=== PATIENT | female | born 1960 | race Caucasian/White ===

== ENCOUNTER → 2016-10-03 | Outpatient (CLI) | payer OTHER ==
--- NOTE | 2016-10-03 12:39 | MAMMOGRAPHY REPORT ---
BILATERAL DIGITAL SCREENING MAMMOGRAM TOMOSYNTHESIS WITH CAD: 10/03/2016 CLINICAL HISTORY: Routine screening. Patient has no complaints. TECHNIQUE: Breast tomosynthesis in addition to standard 2D mammography was performed. Current study was also evaluated with a Computer Aided Detection (CAD) system. COMPARISON: Comparison is made to exams dated: 06/25/2014 mammogram, 04/10/2012 mammogram, 03/21/2011 mammogram - [facility], and 01/16/2008. BREAST COMPOSITION: The tissue of both breasts is almost entirely fatty. FINDINGS: No suspicious masses, calcifications, or areas of architectural distortion are noted in e ither breast. There has been no significant interval change compared to prior exams. IMPRESSION: ACR BI-RADS CATEGORY 1: NEGATIVE There is no mammographic evidence of malignancy. A 1 year screening mammogram is recommended. The p atient will receive written notification of the results. Approximately 10% of breast cancers are not detected with mammography. A negative mammographic repor t should not delay biopsy if a clinically suggestive mass is present. Ying England M.D. ah/:10/03/2016 10:24:59 Manager Of Human Resources: Cris Stevenson RT(R)(M), [facility] letter sent: Normal 1/2 BI-RADS Code: ACR BI-RADS Category 1: Negative
== END | disposition home or self-care (01) ==
LOC: C.MAMM 09:43
PROVIDERS: ATTEND Obstetrics & Gynecology
DX: Z12.31 Encounter for screening mammogram for malignant neoplasm of breast (principal)

== ENCOUNTER → 2016-11-22 | Outpatient (CLI) | payer OTHER | END | disposition home or self-care (01) | LOC: C.PAPS 09:22 | PROVIDERS: ATTEND Obstetrics & Gynecology | DX: Z01.419 Encounter for gynecological examination (general) (routine) without abnormal findings (principal) ==

== ENCOUNTER → 2017-09-17 | Outpatient (CLI) | payer OTHER ==
[~2017-09-17] MED LIST: OPTIRAY 320 IV PRN
--- NOTE | 2017-09-17 15:18 | DIAGNOSTIC IMAGING REPORT ---
CHEST COMBO ANGIOGRAPHY CLINICAL HISTORY: 56 years-old Female presenting with ^ABN ECHO,ASCENDING AORTA DILATION ^SCAN COMBO PER PAOfe(KF). TECHNIQUE: Multidetector CT angiography of the chest was performed before and after administration of intravenous contrast. 3-D volumetric and/or maximum intensity projection (MIP) images were subsequently reconstructed for review. IV contrast: 120 mL of Optiray 320. A dose lowering technique was used consistent with the principles of ALARA (as low as reasonably achievable). COMPARISON: None. CT DOSE (mGy.cm): The estimated cumulative dose is 613.11 mGy.cm. FINDINGS: Fire Loss Prevention Engineer topogram: Unremarkable. Vasculature: The study is adequate for assessment of the aorta. Precontrast imaging demonstrates no postsurgical change. No evidence of intramural hematoma. Four-vessel aortic arch. The ascending aorta measures 4.5 cm in diameter, mildly ectatic. Minimal atherosclerosis of aortic arch. Patent origins of the branch vessels. No evidence of dissection, significant intimal irregularity or acute injury. Allowing for the phase of contrast, no filling defect within the pulmonary arterial tree to suggest pulmonary. Main pulmonary artery is not enlarged. No flattening of the interventricular septum. No intracardiac intracardiac filling defect. No reflux of contrast into the hepatic veins. Remaining chest: On soft tissue windows, few subcentimeter nodules may be present in the left lobe of the thyroid. No axillary, supraclavicular, hilar, or mediastinal lymphadenopathy. Coronary artery calcification. Top normal heart size. No pericardial or pleural effusion. Biliary ductal dilatation is suggested. Postsurgical changes of Melanie-en-Y gastric bypass. On lung windows, dependent changes likely atelectasis. Trace emphysema at the apices. Mosaic attenuation at the lung bases could suggest small airways disease. Airways patent. On bone windows, degenerative changes of the spine. IMPRESSION: 1. Mild ectasia of the ascending aorta, which measures 4.5 cm in diameter. 2. No acute aortic injury or evidence of pulmonary embolus. 3. Trace emphysema. 4. Mosaic attenuation at the lung bases could suggest small airways disease. 5. Post surgical changes of Melanie-en-Y gastric bypass. 6. Biliary ductal dilatation is suggested. Electronically signed by: Chaitanya Silvestre M.D. 09/17/2017 3:17 PM Dictated Date/Time: 09/17/2017 3:09 PM
== END | disposition home or self-care (01) ==
LOC: C.CTS 14:33
PROVIDERS: ATTEND Internal Medicine Cardiovascular Disease
DX: I77.810 Thoracic aortic ectasia (principal); Z98.84 Bariatric surgery status

== ENCOUNTER → 2017-11-12 | Outpatient (CLI) | payer BC ==
--- NOTE | 2017-11-13 15:23 | MAMMOGRAPHY REPORT ---
BILATERAL DIGITAL SCREENING MAMMOGRAM TOMOSYNTHESIS WITH CAD: 11/12/2017 CLINICAL HISTORY: Routine screening. Patient has no complaints. TECHNIQUE: Breast tomosynthesis in addition to standard 2D mammography was performed. Current study was also evaluated with a Computer Aided Detection (CAD) system. COMPARISON: Comparison is made to exams dated: 10/03/2016 mammogram, 06/25/2014 mammogram, 03/21/2011 ma mmogram - [facility], 01/16/2008, 12/24/2006, and 11/21/2005 mammogram. BREAST COMPOSITION: The tissue of both breasts is almost entirely fatty. FINDINGS: The parenchymal pattern is unchanged. No developing mass, architectural distortion or clus ter of suspicious microcalcifications is seen in either breast. IMPRESSION: ACR BI-RADS CATEGORY 2: BENIGN There is no mammographic evidence of malignancy. A 1 year screening mammogram is recommended. The pa tient will receive written notification of the results. Approximately 10% of breast cancers are not detected with mammography. A negative mammographic report should not delay biopsy if a clinically suggestive mass is present. Radha Vasquez M.D. ay/:11/12/2017 15:01:04 Clinic Manager: Gloria YEH(Jayy)(Dov), [facility] letter sent: Normal 1/2 BI-RADS Code: ACR BI-RADS Category 2: Benign
== END | disposition home or self-care (01) ==
LOC: C.MAMM 07:53
PROVIDERS: ATTEND Obstetrics & Gynecology
DX: Z12.31 Encounter for screening mammogram for malignant neoplasm of breast (principal)

== ENCOUNTER → 2017-12-10 | Outpatient (CLI) | payer BC | END | disposition home or self-care (01) | LOC: C.PAPS 15:32 | PROVIDERS: ATTEND Obstetrics & Gynecology | DX: Z12.4 Encounter for screening for malignant neoplasm of cervix (principal) ==

== ENCOUNTER → 2017-12-20 | Outpatient (CLI) | payer BC ==
--- NOTE | 2017-12-20 20:16 | DIAGNOSTIC IMAGING REPORT ---
R VENOUS DOPP LOWER EXT UNILAT CLINICAL HISTORY: 57 years-old Female presenting with KNEE PAIN. TECHNIQUE: Real-time grayscale and color and spectral Doppler ultrasound imaging of the veins of the right lower extremity was performed. Compression and augmentation were also utilized. COMPARISON: None. FINDINGS: Right: Common femoral vein: Patent. Greater saphenous vein: Patent. Deep femoral vein: Patent. Femoral vein: Patent. Popliteal vein: Patent. Calf veins: Patent. The posterior tibial vein was not visualized. Other: 5.4 x 1.5 x 4.5 cm anechoic cystic lesion in the popliteal fossa, most likely popliteal cyst. IMPRESSION: 1. No evidence of deep venous thrombosis. 2. Prominent popliteal cyst. Electronically signed by: Chaitanya Silvestre M.D. 12/20/2017 8:15 PM Dictated Date/Time: 12/20/2017 8:14 PM
== END | disposition home or self-care (01) ==
LOC: C.ULTR 19:35
PROVIDERS: ATTEND Family Medicine
DX: M25.569 Pain in unspecified knee (principal); M71.21 Synovial cyst of popliteal space [Baker], right knee

== ENCOUNTER → 2017-12-26 | Outpatient (CLI) | payer BC | END | disposition home or self-care (01) | LOC: C.RDSM 15:27 | PROVIDERS: ATTEND Orthopaedic Surgery Sports Medicine | DX: M71.20 Synovial cyst of popliteal space [Baker], unspecified knee (principal) ==

== ENCOUNTER 2022-07-12 05:54 | Observation (INO) ==
--- NOTE | 2022-06-07 14:38 | PAT Medication Instructions ---
Medication Instructions Date of Service June 07, 2022 Home Medications celecoxib 100 mg capsule (Celebrex) 100 mg PO QAM ergocalciferol (vitamin D2) 1,250 mcg (50,000 unit) capsule (Vitamin D2) 1,250 mcg PO Q7D gabapentin 300 mg tablet,extended release 24 hr 300 mg PO HS levothyroxine 75 mcg tablet 75 mcg PO QAM metoprolol succinate 25 mg tablet,extended release 24 hr 12.5 mg PO HS tjzcppckdcss-Vu-nlyq-minerals 18 mg-0.4 mg tablet 1 tab PO QAM ropinirole 1 mg tablet 1 - 2 mg PO UD tramadol 50 mg tablet 50 mg PO Q4H PRN Continue as directed ropinirole 1 mg tablet 1 - 2 mg PO UD ASK your surgeon for instructions celecoxib 100 mg capsule (Celebrex) 100 mg PO QAM DO NOT take the morning of surgery ergocalciferol (vitamin D2) 1,250 mcg (50,000 unit) capsule (Vitamin D2) 1,250 mcg PO Q7D qlvahqidkdje-Gb-qvvv-minerals 18 mg-0.4 mg tablet 1 tab PO QAM Take morning of surgery With a small sip of water, OTHERWISE NOTHING TO EAT OR DRINK AFTER MIDNIGHT: levothyroxine 75 mcg tablet 75 mcg PO QAM tramadol 50 mg tablet 50 mg PO Q4H PRN(if needed) Take evening before surgery gabapentin 300 mg tablet,extended release 24 hr 300 mg PO HS metoprolol succinate 25 mg tablet,extended release 24 hr 12.5 mg PO HS tramadol 50 mg tablet 50 mg PO Q4H PRN(if needed) Other Notes If you have any questions please call us at [phone] or [phone] or [phone] or [phone]
--- NOTE | 2022-06-20 10:35 | Anesthesiology Consultation ---
Date of Service June 20, 2022 Assessment & Plan (1) Encounter for pre-operative examination: - Awaiting upcoming cardiology office visit note and echo (both scheduled 06/27; Dr. Iverson). - COVID screening: Per assessment on 06/07: No known COVID-19 positive contacts or current COVID-19 related symptoms. Travel screen negative. Patient vaccinated. At surgeon discretion if preop Covid testing being done. - Outpatient joint assessment: Pt currently scheduled for inpatient pathway. If surgeon requests review for outpatient joint pathway, patient is not recommended candidate for outpatient joint program from anesthesia standpoint. Chart Review Chart Review: Patient seen in Pre Admission Testing Teaching & Discussion Pre-Anesthesia Teaching/Discussion Notes: Instructed NPO after midnight before surgery,except medications with 15 cc of water. Medication instructions provided according to the PAT guidelines. History Surgery Operation Date: 07/12/22 07:00 Proposed Procedures p Right Total Hip Arthroplasty - Chaitanya Walls MD Height/Weight Height: 5 ft 6 in Weight: 78.6 kg Allergies Allergy/AdvReac Type Severity Reaction Status Date / Time No Known Drug Allergies Allergy Verified 06/07/22 10:09 Medications Home Medications Medication Instructions Recorded Confirmed Last Taken celecoxib 100 mg capsule (Celebrex) 100 mg PO QAM 06/07/22 06/07/22 Unknown ergocalciferol (vitamin D2) 1,250 1,250 mcg PO Q7D 06/07/22 06/07/22 Unknown mcg (50,000 unit) capsule (Vitamin D2) gabapentin 300 mg tablet,extended 300 mg PO HS 06/07/22 06/07/22 Unknown release 24 hr levothyroxine 75 mcg tablet 75 mcg PO QAM 06/07/22 06/07/22 Unknown metoprolol succinate 25 mg 12.5 mg PO HS 06/07/22 06/07/22 Unknown tablet,extended release 24 hr cjanjtdaqely-Hz-omlf-minerals 18 1 tab PO QAM 06/07/22 06/07/22 Unknown mg-0.4 mg tablet ropinirole 1 mg tablet 1 - 2 mg PO UD 06/07/22 06/07/22 Unknown tramadol 50 mg tablet 50 mg PO Q4H PRN Pain 06/07/22 06/07/22 Unknown Past Medical History Medical History CAD (coronary artery disease) Mild nonobstructive CAD per 2020 cardiac cath History of COVID-19 Dx 08/2020, symptoms at time: headache, loss taste smell for 2 months > resolved Hx of aortic aneurysm Under surveillance by cardio (to be updated prior to surgery per PAT RN interview) Dilated ascending aorta (4.4cm) per 12/05/20 echo Hx of osteoarthritis Hypertension Hypothyroidism Sleep apnea Doesn't use CPAP Exercise / Class Metabolic Activity II 4-5 Yardwork/Stairs/Walk up hill Past Surgical History Surgical History History of cardiac cath 2020 > no stents History of esophagogastroduodenoscopy (EGD) Hx of appendectomy Hx of section x2 Hx of cholecystectomy Hx of colonoscopy Hx of gastric bypass ~17 years ago initial surgery Revision w/hernia repair (2020) Past Anesthesia History No Hx of Anesthesia Complications and No Family Hx of Anesthesia Complications History of PONV No Hx of PONV and No Hx of Motion Sickness Social History Smoking Status: Former smoker Do You Dip or Chew Tobacco: No Smoking End Date: Quit 33 years ago Hx Alcohol Use: Yes (Very rare) Hx Substance Use: No substance use type: does not use Review of Systems Patient denies chest pain, shortness of breath, dyspnea on exertion, fever, chills, cough, wheezing, palpitations. Physical Exam Vital Signs VITALS BP 143/83 P 52 TEMP 98.0 SP02 96%RA RESP 16 PHYSICAL Full cervical extension range of motion. Full TMJ range of motion. TMD 3 finger breaths Mallampati Score 2 Dentition: full dentures, approximately 8 remaining front teeth per pt Lungs: clear throughout to auscultation Cardiac: regular rate and rhythm, no murmurs noted Spine: normal Carotid arteries: negative bruit Extremities: no edema Lab Results Anesthesia Preop Results Results Anesthesia Widget: WBC 4.58 K/ul (4.8-10.8) L 06/20/22 Hgb 13.5 g/dl (12.0-16.0) 06/20/22 Hct 40.4 % (34.1-44.9) 06/20/22 Plt 176 K/uL (130-400) 06/20/22 Na 139 mmol/L (136-145) 06/20/22 K 4.2 mmol/L (3.5-5.1) 06/20/22 Cl 105 mmol/L (98-107) 06/20/22 CO2 30 mmol/L (21-32) 06/20/22 BUN 13 mg/dl (6-23) 06/20/22 Creat 0.73 mg/dl (0.6-1.2) 06/20/22 Glucose Level 88 mg/dl (70-99(Fasting)) 06/20/22 PT 10.8 Seconds (9.0-12.0) 06/20/22 PTT 28.8 Seconds (21.0-31.0) 06/20/22 INR 1.0 (0.9-1.1) 06/20/22 HA1c Pending 06/22/22 Urine Color Yellow 06/20/22 Urine Appearance Clear (Clear) 06/20/22 Urine pH 6.5 (4.5-7.5) 06/20/22 Urine Specific [place] 1.004 (1.000-1.030) 06/20/22 Urine Protein Negative (Negative) 06/20/22 Urine Glucose (UA) Negative (Negative) 06/20/22 Urine Ketones Negative (Negative) 06/20/22 Urine Blood Negative (Negative) 06/20/22 Urine Nitrite Negative (Negative) 06/20/22 Urine Bilirubin Negative (Negative) 06/20/22 Urine Urobilinogen Negative (Negative) 06/20/22 Urine Leukocyte Esterase Negative (Negative) 06/20/22 Blood Type O Positive 06/20/22 Antibody Screen NEGATIVE 06/20/22 Testing Electrocardiogram Date: 06/20/22 SB at 55bpm. Cannot r/o anterior infarct, age undetermined. Echo scheduled 06/27/22* Chest X-Ray Date: 06/20/22 FINDINGS: PA and lateral chest radiographs are compared to study dated 03/28/2022. The heart is enlarged. The pulmonary vasculature is noncongested. The lungs and pleural spaces are clear. There is no pneumothorax. The bony thorax appears intact. IMPRESSION: Cardiomegaly with no active disease in the chest. Stress Test Date: 01/17/21 Type: exercise Positive stress echocardiogram for ischemia 96% MPHR. Negative stress ECG for ischemia 96% MPHR. Average exercise tolerance for age and gender. 6.1 METS. Severe hypokinesis of the mid to distal anterior, apex and apical inferior lopez. Basal and mid inferior wall hypokinesis. Mild concentric LVH. EF 60%. Cardiac Catheterization Date: 02/03/21 Mild nonobstructive CAD. Mild dilation of the ascending aorta. Mildly elevated LVEDP at 19 mmHg. COVID-19 Risk Screen Screening Information COVID-19 Screen Date: 06/20/22 Exposure 21 Days Family/Household +COVID Last 21 Days: No Exposure 10 Days Any COVID Exposure Last 10 Days: No Symptoms Last 10 Days Experienced COVID Sx Last 10 Days: No + COVID 0-90 Days COVID + in Last 0-90 Days: No
[2022-07-12] MEDS ORDERED: traMADol HCL 50 MG TABLET PO SCH (06:00)
[2022-07-12] MEDS ORDERED: dexAMETHasone 4 MG TAB PO SCH (06:00)
[2022-07-12] MEDS ORDERED: TRANEXAMIC ACID 1,000 MG **IV Intra-op IV SCH (06:00)
[2022-07-12] MEDS ORDERED: TRANEXAMIC ACID 1,000 MG **IV Pre-op IV SCH (06:00)
[2022-07-12] MEDS ORDERED: LR 500ML BOLUS, THEN 15ML/HR IV SCH (06:00)
[2022-07-12] MEDS ORDERED: ROPIVACAINE 0.5% HCL/PF 150 MG, BUPIVACAINE 0.75% MPF 20 ML, EPINEPHrine 0.15 MG, Ketor... INFIL SCH (06:00)
[2022-07-12] MEDS ORDERED: ceFAZolin 2000MG 2,000 MG/15 ML SYR IV SCH (06:00)
[2022-07-12] MEDS ORDERED: CeleBREX 200 MG CAP PO SCH ×2 (06:00→21:00)
[2022-07-12] MEDS ORDERED: ACETAMINOPHEN 500 MG TAB PO SCH (06:00)
[2022-07-12] MEDS ORDERED: FAMOTIDINE 20 MG TAB PO SCH (06:00)
[2022-07-12] MEDS ORDERED: Scopolamine 1 MG TDSY TD SCH (06:00)
[2022-07-12] MEDS ORDERED: LR 60ML/HR IV SCH (06:00)
[2022-07-12] MEDS ORDERED: BUPIVACAINE 0.5 % 5 MG/1 ML PF 10ML VIAL ONE (06:37)
[2022-07-12] MEDS ORDERED: MIDAZOLAM HCL 1 MG/ML 2ML VIAL ONE ×2 (07:25→08:56)
--- NOTE | 2022-07-12 08:08 | History & Physical Bridge Note ---
Date of Service July 12, 2022 History & Physical Bridge Note I have examined the patient, reviewed the History & Physical and in the interval since the performance of the History & Physical I have noted the following changes of clinical significance: no changes noted
[2022-07-12] MEDS ORDERED: ORTHO JOINT ANESTHETIC ONE (08:17)
[2022-07-12] MEDS ORDERED: ePHEDrine sulfate 50 MG/ML AMP IV PRN (08:40)
[2022-07-12] MEDS ORDERED: HYDROmorphone INJ 2 MG/ML SYR/VIAL IV PRN (08:40)
[2022-07-12] MEDS ORDERED: fentaNYL citrate 100 MCG/2 ML VIAL IV PRN (08:40)
[2022-07-12] MEDS ORDERED: PROMETHAZINE HCL 12.5 MG in SODIUM CHLORIDE 0.9% 50 ML IV PRN (08:40)
[2022-07-12] MEDS ORDERED: ONDANSETRON INJ 2 MG/ML 2 ML VIAL IV PRN ×2 (08:40→10:08)
[2022-07-12] MEDS ORDERED: ATROPINE SULFATE 0.1 MG/ML 10ML SYR IV PRN (08:40)
[2022-07-12] MEDS ORDERED: PROPOFOL IV EMULSION 10 MG/ML 20 ML VIAL IV ONE ×2 (08:52→10:24)
[2022-07-12] MEDS ORDERED: ePHEDrine sulfate 50 MG/ML AMP ONE (09:25)
[2022-07-12] MEDS ORDERED: bisacodyL 10 MG SUPP PR PRN (10:08)
[2022-07-12] MEDS ORDERED: ALUMINUM/MAGNESIUM SUSP 30 ML UDC PO PRN (10:08)
[2022-07-12] MEDS ORDERED: METOCLOPRAMIDE HCL INJ 5 MG/ML 2 ML VIAL IV PRN (10:08)
[2022-07-12] MEDS ORDERED: HYDROCODONE/ACETAMOPHEN 5/325MG TAB PO PRN (10:08)
[2022-07-12] MEDS ORDERED: MAGNESIUM HYDROXIDE SUSP 30 ML UDC PO PRN (10:08)
[2022-07-12] MEDS ORDERED: NALOXONE HCL 0.4 MG/1 ML VIAL/CARP IV PRN (10:08)
[2022-07-12] MEDS ORDERED: diphenhydrAMINE 50 MG/ML VIAL IV PRN (10:08)
[2022-07-12] MEDS ORDERED: traMADol HCL 50 MG TABLET PO PRN (10:13)
[2022-07-12] MEDS ORDERED: rOPINIRole HCL 1 MG TABLET PO SCH (10:15)
--- NOTE | 2022-07-12 10:16 | Operative Report ---
Post Operative Report Pre & Post Diagnosis Operation Date: 07/12/22 08:30 Pre-Op Diagnosis: Right Hip Osteoarthritis Post-Op Diagnosis: Right Hip Osteoarthritis I identified the patient and participated in the time-out.: Yes Procedure Operation Date: 07/12/22 08:30 Actual Procedures p Right Total Hip Arthroplasty(Right) - Chaitanya Walls MD Surgeon Chaitanya Walls MD It Support Specialist Aris Payton DO and Jemal Marr PA-C Estimated Blood Loss 200 Findings Consistent with Post-Op Diagnosis Fluids 1200 Specimens Right femoral head Anesthesia Type Spinal MAC Complications none Disposition Disposition: Recovery Room Indications 61-year-old female, with right hip osteoarthritis refractory to conservative management. X-rays demonstrate [id number]-kl-dyak disease. I had a long discussion with her about the risks and benefits of surgery, alternatives, and expected outcomes. After reviewing all these she elected proceed with surgery. All questions were answered. Informed consent was signed. Description of Procedure Patient was identified in the preoperative holding area and the surgical site, right hip, was marked. A spinal anesthetic was placed, then the patient was brought back to the main operating room, placed in the operating table and moved into the lateral decubitus position. Axillary roll was placed. All bony prominences were padded. Perioperative antibiotics and tranexamic acid 1 gram IV were administered. Operative extremity was prepped and draped in the normal sterile fashion. Prior to incision a multidisciplinary timeout was called. All in the room were in agreement. We began by making an incision for a posterior approach to the hip. We dissected down through subcutaneous tissues to the level of the fascia. The fascia was incised in line with the incision. Charnley bow was placed. The trochanteric bursa was excised. The piriformis and short external rotators were dissected off the posterior aspect of the hip. A box cut was made in the capsule. The femoral head was dislocated. The femoral neck cut was made at our preoperative template. The acetabulum was then exposed. The labrum was sharply excised. Contents of the cotyloid fossa were removed with electrocautery. We then began reaming at a size 8 mm less than our preoperative template. We reamed up by [address] the way up to a size 54 mm cup. This gave us good bleeding cancellus bone circumferentially. The acetabulum was then irrigated out and dried. The real Florence Gription cup was then impacted down into position with 45 degrees of lateral opening and 25 degrees of anteversion. A single cancellous bone screw was placed up into the ilium. Excellent fixation was obtained. A trial liner for a 36 mm femoral head was then placed. Next we turned our attention to the femur. The lateral neck was removed with a box osteotome. Intramedullary guide was used followed by the lateralizing reamer. We then reamed up to a size 5 Butner stem. We then broached all the way up to a size 4. We began trialing with a standard offset neck and a +5 head. Hip was reduced. Leg lengths were symmetric. The hip was stable in extension and external rotation, and stable in the sleeper position. At 90 degrees of hip flexion the hip could be internally rotated 65 degrees before le vering out of the cup. I was very happy with the stability exam. Therefore the hip was dislocated and the femoral trial was removed. The acetabulum was re- exposed, and the trial liner was removed. An Altrx polyethylene liner for a 36 mm femoral head was then impacted into the shell. The locking mechanism was checked to ensure that it had engaged which it had. The femur was re-exposed. The femoral canal was irrigated and dried. The real size 4 standard offset Butner femoral stem was opened up. This was impacted down into position. It sat at the same level as the femoral trial. Therefore the 36 mm ceramic femoral head with a +5 mm offset was opened up and gently impacted down onto the trunnion. The hip was atraumatically reduced. Another 1 gram of IV tranexamic acid was started prior to closure. The wound was irrigated out with sterile Betadine solution. The periarticular injection cocktail was then placed. The short external rotators, piriformis, and posterior capsule were repaired through drill holes in the greater trochanter using #2 Vicryl. The fascia was run with a looped #1 PDS. The subcutaneous layer was closed with #1 PDS. The dermal layer was closed with 2-0 Vicryl. Zip line was used for the skin followed by a Silverlon dressing. A compressive dressing was then placed. The patient was then rolled supine. Leg lengths were rechecked and were symmetric. An abduction pillow was placed. Sedation was lifted and the patient was transferred to recovery room in stable condition. Summary of implants: [employer] Florence Gription Acetabular Shell Sector Cup, 54 mm outer diameter Florence Cancellous bone screw, 6.5 x 40 mm Florence Altrx Polyethylene Acetabular Liner, Neutral, with a 36 mm inner diameter DePuy Butner Femoral stem with Porocoat, 12/14 taper, size 4 standard offset 36 mm ceramic femoral head with +5 offset Postoperative course: Patient will be admitted to the hospital from the recovery room. Patient will be weightbearing as tolerated with posterior hip precautions. Aspirin for DVT prophylaxis I attest to the content of the Intraoperative Record and any orders documented therein. Any exceptions are noted below.
--- NOTE | 2022-07-12 10:28 | Operative Report ---
Post Operative Report Pre & Post Diagnosis Operation Date: 07/12/22 08:30 Pre-Op Diagnosis: Right Hip Osteoarthritis Post-Op Diagnosis: Right Hip Osteoarthritis I identified the patient and participated in the time-out.: Yes Procedure Operation Date: 07/12/22 08:30 Actual Procedures p Right Total Hip Arthroplasty(Right) - Chaitanya Walls MD Surgeon Chaitanya Walls MD Sliver Lap Machine Tender Aris Payton DO and Jemal Marr PA-C Estimated Blood Loss 200 Findings Consistent with Post-Op Diagnosis Specimens None Complications none Disposition Accompanied Patient To Recovery: Yes Disposition: Recovery Room Description of Procedure Patient was taken to the operating room where anesthesia was administered. Patient was prepped and draped in the usual sterile fashion. Please see attending's operative report for specifics of the procedure. I was present for the entire case from initial patient positioning through final wound closure. Assistance was provided in tissue retraction, hemostasis, and final wound closure. Patient was taken to the recovery room in satisfactory condition. I attest to the content of the Intraoperative Record and any orders documented therein. Any exceptions are noted below.
--- NOTE | 2022-07-12 10:32 | Operative Report ---
Post Operative Report Pre & Post Diagnosis Operation Date: 07/12/22 08:30 Pre-Op Diagnosis: Right Hip Osteoarthritis Post-Op Diagnosis: Right Hip Osteoarthritis I identified the patient and participated in the time-out.: Yes Procedure Operation Date: 07/12/22 08:30 Actual Procedures p Right Total Hip Arthroplasty(Right) - Chaitanya Walls MD Surgeon FINN Omer MD Hearing Therapy Teacher Aris Payton DO and Jemal Marr PA-C Estimated Blood Loss 200 Findings Consistent with Post-Op Diagnosis see operative report Specimens see operative report Drains none Complications none Disposition Accompanied Patient To Recovery: Yes Indications This 61-year-old female presented to the office with complaints of persisting right hip pain. She had tried conservative care measures without improvement. She elected to proceed with surgical intervention after being educated about potential risks and outcomes. Preoperative imaging was obtained. Description of Procedure Patient was administered a spinal anesthetic and then taken to the operating room where she was given sedation. She was prepped and draped in the usual sterile fashion. Please see Dr. Walls's operative report for specifics of the procedure. I was present for the entire case from initial patient positioning through final wound closure. Assistance was provided in tissue retraction, hemostasis, trial implant placement, final implant placement, and final wound closure. Patient was taken to the recovery room in satisfactory condition. I attest to the content of the Intraoperative Record and any orders documented therein. Any exceptions are noted below.
--- NOTE | 2022-07-12 11:35 | Anesthesiology Progress Note ---
Date of Service July 12, 2022 Anesthesia Post Procedure Vital Signs Vital Signs: Temp Pulse Pulse Resp BP Pulse Ox O2 Del Method 07/12/22 11:27 36.3 C L 62 16 118/75 97 Room Air 07/12/22 11:15 58 L 13 121/67 96 Room Air 07/12/22 11:05 36.3 C L 61 12 126/64 97 Room Air 07/12/22 10:55 79 20 118/82 96 Room Air 07/12/22 10:45 80 17 119/80 94 Room Air 07/12/22 10:35 64 13 105/69 98 Oxymask 07/12/22 10:28 36.0 C L 87 15 108/71 95 Oxymask 07/12/22 06:13 36.7 C 69 20 148/89 H 96 Room Air 07/12/22 06:13 Room Air O2 Flow Rate 07/12/22 11:27 07/12/22 11:15 07/12/22 11:05 07/12/22 10:55 07/12/22 10:45 07/12/22 10:35 4 07/12/22 10:28 6 07/12/22 06:13 07/12/22 06:13 Pain Intensity Right Hip: Pain Intensity: 0 Transfer of Care Handoff Completed per policy Notes Mental Status: alert / awake / arousable and participated in evaluation Nausea / Vomiting: adequately controlled Pain: adequately controlled Airway Patency, RR, SpO2: stable & adequate BP & HR: stable & adequate Hydration State: stable & adequate Neuraxial Anesthesia: was administered and sensory block is resolving Anesthetic Complications: no major complications apparent and Pt Satisfied with anesthetic care
[2022-07-12] MEDS: KETOROLAC TROMETHAMINE 15 MG/ML VIAL IV SCH ×3 (12:40→23:36)
[2022-07-12] MEDS: SODIUM CHLORIDE 0.9% 1000ML 1,000 ML IV SCH ×2 (12:40→23:03)
[2022-07-12] MEDS: ACETAMINOPHEN 500 MG TAB PO SCH ×2 (13:55→22:09)
[2022-07-12] MEDS ORDERED: TRANEXAMIC ACID / 0.7% NACL 1,000 MG/100 ML BAG IV SCH (16:00)
[2022-07-12] MEDS: Scopolamine CHECK PATCH PLACEMENT SCH ×2 (16:15→23:44)
[2022-07-12] MEDS: ceFAZolin 2000MG 2,000 MG/15 ML SYR IV SCH ×2 (16:15→23:37)
--- NOTE | 2022-07-12 17:10 | XRay Report ---
XR pelvis 1-2V routine CLINICAL HISTORY: Postoperative evaluation. COMPARISON: Pelvis radiograph June 20, 2022. FINDINGS: Pelvic surgical clips are present. Alignment of the total right hip arthroplasty is anatom ic. There is no periprosthetic fracture or unexpected radiopaque foreign body. There is an acetabular screw. IMPRESSION: Expected findings following total right hip arthroplasty. ACT 112: Negative or not required by law. Electronically signed by: Erwin Alexis M.D. 07/12/2022 5:09 PM
[2022-07-12] MEDS: DOCUSATE SODIUM 100 MG CAP PO SCH (20:23)
[2022-07-12] MEDS ORDERED: METOPROLOL SUCC 25MG EXT REL TAB PO SCH (21:00)
[2022-07-12] MEDS ORDERED: SENNA 8.6 MG TAB PO SCH (21:00)
[2022-07-12] MEDS ORDERED: GABAPENTIN 300 MG CAP PO SCH (21:00)
[2022-07-12] MEDS ORDERED: rOPINIRole HCL 2 MG TABLET PO SCH (23:30)
[2022-07-13] MEDS: ACETAMINOPHEN 500 MG TAB PO SCH (05:47)
[2022-07-13] MEDS: KETOROLAC TROMETHAMINE 15 MG/ML VIAL IV SCH (05:48)
[2022-07-13 06:11] LABS: Basophils # (auto) 0.01 K/uL (0-0.2); Basophils % (auto) 0.1 %; Eosinophils # (auto) 0.03 K/uL (0-0.50); Eosinophils % (auto) 0.4 %; Hemoglobin 10.6 g/dl (12.0-16.0); Immature Granulocytes # (auto) 0.02 K/uL (0.00-0.02); Immature Granulocytes % (auto) 0.3 %; Lymphocytes % (auto) 12.8 %; Mean Corpuscular Hgb Conc 33.1 g/dL (32.0-36.0); Mean Corpuscular Volume 90.7 fL (80.0-100.0); Mean Platelet Volume 10.2 fL (9.4-12.3); Monocytes # (auto) 0.52 K/uL (0.24-0.82); Monocytes % (auto) 6.6 %; Neutrophils # (auto) 6.26 K/uL (1.4-6.5); Neutrophils % (auto) 79.8 %; Platelet Count 157 K/uL (130-400); RDW Coefficient of Variation 13.9 % (11.5-14.5); RDW Standard Deviation 45.9 fL (36.4-46.3); Red Blood Count 3.53 M/uL (3.93-5.22); White Blood Count 7.84 K/ul (4.8-10.8)
[2022-07-13] MEDS ORDERED: LEVOTHYROXINE SODIUM 75 MCG TABLET PO SCH (06:30)
[2022-07-13 06:42] LABS: BUN Creatinine Ratio 29.4 (10-20); Calcium 8.1 mg/dl (8.5-10.1); Creatinine Clr Calc Pharmacy 89.8 ml/min; Est GFR (African American) 107.9 ml/min; Est GFR (Non-African American) 93.1 ml/min; Potassium 3.9 mmol/L (3.5-5.1)
[2022-07-13] MEDS ORDERED: dexAMETHasone 4 MG TAB PO SCH (08:00)
[2022-07-13] MEDS: DOCUSATE SODIUM 100 MG CAP PO SCH (08:50)
[2022-07-13] MEDS: Scopolamine CHECK PATCH PLACEMENT SCH (08:50)
[2022-07-13] MEDS ORDERED: MULTIVITAMIN TAB PO SCH (09:00)
[2022-07-13] MEDS ORDERED: MULTIVITAMIN CA IRON MINERALS PO SCH (09:00)
[2022-07-13] MEDS ORDERED: CELECOXIB 100 MG CAP PO SCH (09:00)
--- NOTE | 2022-07-13 10:05 | Orthopedic Progress Note ---
Date of Service July 13, 2022 Assessment & Plan (1) S/P total hip arthroplasty: Plan: PT/OT WBAT with walker Total hip precautions reviewed Keep Silverlon in place Pain control with PO meds DVT prophy with Teds and Aspirin Ice with EZ wrap Plan is to discharge home today with in home PT for first 2 weeks postoperatively Follow up at [facility] as previous scheduled With questions contact our clinic at [phone] Admission and Anticipated Discharge Date Admission Date: July 12, 2022 Subjective This 61 yo F is seen this AM day 1 s/p Right Total hip arthroplasty. She is doing very and has completed her AM OT eval. She states that her pain is well controlled with the PO Hydrocodone. She is planning on going home later today with in home PT set up for the first 2 weeks post operatively. She denies CP, SOB, fever, chills, sweat, lethargy, or numbness/tingling in her Rt LE. She also denies nausea, vomiting, difficulty voiding or moving her bowels. Review of Systems Review of Systems: All systems reviewed & are unremarkable except as noted in Subjective Physical Exam Physical Exam: Right Hip: Outer dressing removed. Silverlon is clean dry and intact. Patient is able to perform active SLRT and is easily able to dorsi/plantar flex her foot. Quad strength is 4/5. She experiences very slight pain with light passive hip flexion, internal and external rotation. She is NV intact in the Rt LE Results & Data ([facility]) Vital Signs (Past 12 Hours) Vital Signs Temp Pulse Resp BP Pulse Ox O2 Del Method 07/13/22 06:58 36.8 C 62 16 113/68 97 Room Air 07/13/22 02:37 36.7 C 59 L 16 126/73 96 Room Air 07/12/22 22:48 37 C 64 16 114/69 94 Room Air Diagnostic Findings Laboratory Results WBC 7.84 K/ul (4.8-10.8) 07/13/22 05:37 RBC 3.53 M/uL (3.93-5.22) L 07/13/22 05:37 Hgb 10.6 g/dl (12.0-16.0) L 07/13/22 05:37 Hct 32.0 % (34.1-44.9) L 07/13/22 05:37 MCV 90.7 fL (80.0-100.0) 07/13/22 05:37 MCH 30.0 pg (25.0-34.0) 07/13/22 05:37 MCHC 33.1 g/dL (32.0-36.0) 07/13/22 05:37 RDW Std Deviation 45.9 fL (36.4-46.3) 07/13/22 05:37 RDW Coeff of Loren 13.9 % (11.5-14.5) 07/13/22 05:37 Plt Count 157 K/uL (130-400) 07/13/22 05:37 MPV 10.2 fL (9.4-12.3) 07/13/22 05:37 Immature Gran % (Auto) 0.3 % 07/13/22 05:37 Neut % (Auto) 79.8 % 07/13/22 05:37 Lymph % (Auto) 12.8 % 07/13/22 05:37 Cascade % (Auto) 6.6 % 07/13/22 05:37 Eos % (Auto) 0.4 % 07/13/22 05:37 Baso % (Auto) 0.1 % 07/13/22 05:37 Neut # (Auto) 6.26 K/uL (1.4-6.5) 07/13/22 05:37 Lymph # (Auto) 1.00 K/uL (1.2-3.4) L 07/13/22 05:37 Cascade # (Auto) 0.52 K/uL (0.24-0.82) 07/13/22 05:37 Eos # (Auto) 0.03 K/uL (0-0.50) 07/13/22 05:37 Baso # (Auto) 0.01 K/uL (0-0.2) 07/13/22 05:37 Immature Gran # (Auto) 0.02 K/uL (0.00-0.02) 07/13/22 05:37 Sodium 139 mmol/L (136-145) 07/13/22 05:37 Potassium 3.9 mmol/L (3.5-5.1) 07/13/22 05:37 Chloride 111 mmol/L (98-107) H 07/13/22 05:37 Carbon Dioxide 26 mmol/L (21-32) 07/13/22 05:37 Anion Gap 2 (3-11) L 07/13/22 05:37 BUN 20 mg/dl (6-23) 07/13/22 05:37 Creatinine 0.68 mg/dl (0.6-1.2) 07/13/22 05:37 Est Cr Clr Drug Dosing 89.8 ml/min 07/13/22 05:37 Est GFR ( Amer) 107.9 ml/min 07/13/22 05:37 Est GFR (Non-Af Amer) 93.1 ml/min 07/13/22 05:37 BUN/Creatinine Ratio 29.4 (10-20) H 07/13/22 05:37 Glucose 113 mg/dl (70-99(Fasting)) H 07/13/22 05:37 Calcium 8.1 mg/dl (8.5-10.1) L 07/13/22 05:37 SARS-CoV-2, RNA, NAAT NEGATIVE (NEGATIVE) 07/12/22 Unknown Impressions Pelvis X-Ray 07/12/22 10:08 XR pelvis 1-2V routine CLINICAL HISTORY: Postoperative evaluation. COMPARISON: Pelvis radiograph June 20, 2022. FINDINGS: Pelvic surgical clips are present. Alignment of the total right hip arthroplasty is anatomic. There is no periprosthetic fracture or unexpected radiopaque foreign body. There is an acetabular screw. IMPRESSION: Expected findings following total right hip arthroplasty. ACT 112: Negative or not required by law. Electronically signed by: Erwin Alexis M.D. 07/12/2022 5:09 PM
[2022-07-13] MEDS ORDERED: ASPIRIN 81 MG ECTAB PO SCH (10:15)
--- NOTE | 2022-07-13 10:17 | Discharge Summary ---
Date of Service July 13, 2022 Admission HPI Per Admitting Provider History of Present Illness Patient is a 61-year-old female who is a new patient to Dr. Walls. She is here today for history and physical for upcoming right total hip arthroplasty on 07/12/[address] Walls. She explains she has had right hip pain that has been ongoing for over a year. She denies any fall or injury that provoke pain. She states the pain is in the groin and progresses with weightbearing activities. She states the pain is 7/10 currently and increases with weightbearing activity she states she has pain with ambulating especially on uneven surfaces. She denies any use of an assistive device. She states she has pain with going up and down the stairs and takes increased time to do this. She complains of stiffness after sitting for period of time. She has difficulty getting comfortable at night and sleeping due to groin pain. She states she has a hard time getting comfortable and often has to use a pillow under her legs. She denies any knee pain. She denies any paresthesia in the leg. She does complain of some weakness that has been ongoing in the right lower extremity. She states the pain has limited her ability for functional activities and she has modified her activities without improvement with her symptoms. She has tried exercising previously which did not seem to relieve her pain. She has tried a therapeutic corticosteroid under ultrasound guidance that did give her relief however this was only for 1 week. Her imaging shows advanced osteoarthritis of the right hip joint with [id number] with subchondral sclerosis and osteophytes. Due to progression of symptoms after a lengthy course of failed conservative treatment patient will be taken to the OR for a right total hip arthroplasty with Dr. Walls. Patient has a history of an aortic aneurysm she does follow cardiology and has an echo on 06/27/2022 followed by an appointment with cardiology for cardiac clearance. She has received medical clearance. She denies any history of heart attack, pulmonary disease, has a history of smoking, denies any history of DVT or pulmonary embolism. Denies any history of cancer. Admission Exam Per Admitting Provider Physical Exam Vitals & Measurements T: 36.4 C RR: 18 BP: 122/78 SpO2: 98% HT: 169.4 cm WT: 80.0 kg BMI: 27.88 General: Pt is alert and oriented x3. Wearing a mask. No acute distress. Well-dressed, well-nourished . HEENT: Head: Atraumatic, normocephalic. Eyes: Extraocular movements intact. Pupils equal, round, and reactive to light. Sclerae are normal. Ears: Hearing is grossly normal. Nose: Nares are patent bilaterally. Throat: Oropharynx clear. Mucous membranes moist. Upper dentures, with missing teeth no bottom. Uvula midline. Neg for erythema Neck: Supple. No lymphadenopathy. Nontender to palpation. Full range of motion. Lungs: Clear to auscultation bilaterally. No adventitious sounds. No acces som muscle use. Heart: Regular rate and rhythm. Normal S1, S2. No murmurs, rubs, or gallops appreciated. Abdomen: Soft, nontender, nondistended. Normal bowel sounds heard in all 4 quadrants. Musculoskeletal: Palpable tenderness of her right groin. Hip range of motion patient expressed pain with internal and external rotation as well as flexion and AB duction. Limited with internal rotation when compared to left lower extremity. Able to tolerate approximately hip flexion to about 75 degrees before she has extreme pain in approximately 40 degrees of abduction on the right. Positive Rocker and Mir sign on right. Leg length is equal strength is 4/5 on right lower extremity and 5/5 on left. Patient is able to actively dorsiflex and plantarflex ankle. Bilateral upper extremity range of motion is grossly within normal limits gait is antalgic without assistive device at this time bilateral lower extremity are neurovascularly intact.. Integumentary:normal in color neg for abrasion or rash Neuro: Cranial nerves II-XII grossly intact Psychiatric: Good eye contact, normal mood and affect, cooperative during exam, nonsuicidal Principal Diagnosis Right Hip Osteoarthritis Discharge Exam Right Hip: Outer dressing removed. Silverlon is clean dry and intact. Patient is able to perform active SLRT and is easily able to dorsi/plantar flex her foot. Quad strength is 4/5. She experiences very slight pain with light passive hip flexion, internal and external rotation. She is NV intact in the Rt LE Discharge Data Allergies Allergy/AdvReac Type Severity Reaction Status Date / Time No Known Drug Allergies Allergy Verified 07/12/22 06:11 Procedures Performed Operation Date: 07/12/22 08:30 Actual Procedures p Right Total Hip Arthroplasty(Right) - Chaitanya Walls MD Hospital Course (1) S/P total hip arthroplasty: Patient had an uneventful overnight stay follow Right [id number]. She did very well with PT/OT. She is anxious to be discharged home later today. She is already set up to in home PT for the first 2 weeks post operatively. PT/OT WBAT with walker Total hip precautions reviewed Keep Silverlon in place Pain control with PO meds DVT prophy with Teds and Aspirin Ice with EZ wrap Plan is to discharge home today with in home PT for first 2 weeks postoperatively Follow up at [facility] as previous scheduled With questions contact our clinic at [phone] Total Time Total Time Spent Total Time Spent (In Minutes): 15 mins Discharge Plan Discharge Items Patient Disposition: Home - Home Health Services Reason For Visit: Right Hip Osteoarthritis Discharge Diagnosis: Right Hip Osteoarthritis Activity: As commented below Lifting: None Bathing: Keep incision dry Bathing Comment: May shower tomorrow Sexual Activity: Wait until after follow-up appointment Exercise/Sports: Wait until after follow-up appointment Driving/Machine Use: No driving until cleared by cardiology clinical nurse specialist Weightbearing: Right weightbearing Weightbearing Comment: as tolerated with walker assistance Non-emergency contact: Surgeon Call non-emergency contact if: you have any medication questions, your pain is not controlled, your temperature is above 101.5, your wound has increased drainage and your wound pain has increased Follow-up/Referrals: Dali Arevalo MD [Primary Care Provider] - Diet: Regular Addtl Attending Provider Instructions: Post-operative Instructions Dear Patient and Family/Friends, Before you are discharged from the hospital, it is important to know what to expect when you get home after surgery. To that end, we have created this sheet of discharge instructions which covers many commonly asked questions. Make sure you go through this sheet in its entirety with your nurse before you are discharged. Please note that we will go over the specifics of your surgery and recovery when you return for your first post-operative visit. Sincerely, Dr. Walls Medications 1. Hydrocodone 5/325 mg: take 1-2 tabs every 4-6 hours as needed for pain control. This medication will be sent to your pharmacy. 2. Celebrex 100 mg: cont your normal regimen of this medication for post op pain and inflammation relief. 3. Aspirin 81 mg: take 1 tab twice daily for the first 30 days post operatively for blood clot prevention. Please purchase this medication. Pain Expect to be in a fair amount of pain after surgery. Remember, our goal is not to eliminate your pain, but to make it tolerable. It is a good idea to stay ahead of your pain by taking the medications you were prescribed once you get home. Typically, the pain starts improving 3-7 days after surgery. You should start weaning off the narcotic pain medication (oxycodone, hydrocodone, hydromorphone, morphine) as soon as your pain improves. Please call our office if your pain is not adequately controlled. Ice Ice your operative site at least 5 times a day for 15-30 minutes at a time. Make sure you have a thin cloth between the ice or cooling unit and your skin to prevent farmer bite. This is especially important if you received a nerve block. Continue icing your operative site for the first 5-7 days after surgery, then as needed. Diet/Nausea/Vomiting Start by drinking clear liquids and eating crackers. If you can tolerate this, then you may resume your normal diet. If you feel nauseated or vomit, take Zofran/ondansetron (if prescribed). Please call our office if you have intractable nausea or vomiting, or, if after hours, you may go to the Emergency Room for help. Constipation Constipation is a common side effect of narcotic pain medication. If you have not had a bowel movement within 2 days after surgery, we recommend purchasing an over the counter laxative such as Milk of Magnesia, Dulcolax, or Miralax from a local pharmacy, and taking it as instructed. Call our clinic if any questions. Nerve block The anesthesia team sometimes places a nerve block to help with post-operative pain control. This results in significant numbness and inability to move the extremity. The nerve block usually wears off in 8-12 hours, but sometimes can last up to 24 hours. Please call our office if you are still unable to move your extremity after 24 hours, unless you received a pain pump to take home. Nerve blocks typically wear off quickly, so start taking pain medication as soon as you start feeling soreness near your surgical site. Weight bearing and Range of Motion. Do not bear any weight through your operative extremity immediately after surgery. If you had upper extremity surgery, do not lift anything with that arm. If you are in a knee brace, keep it locked in place until your follow-up. We will discuss your weight bearing, range of motion, and lifting restrictions in detail at your first post-operative appointment. Continuous Passive Motion (CPM) Machine If you were prescribed a CPM machine, it will start after your first post- operative appointment, at which time we will give you instructions on the range of motion settings and duration of treatment Physical therapy You will be given a prescription for physical therapy or occupational therapy at your first post-operative appointment. Typically, patients start therapy within 1 week of surgery Wound care and showering We will inspect your wound at your first post-operative visit, and may do a dressing change at that time. Most patients will be in a water-proof dressing that is removed 14 days after surgery. It is normal to see some dried blood on the dressing. Do not remove your dressing, paper strips or sutures yourself unless you are given permission. Showering is allowed the day after surgery. Do not scrub or remove any dressings. The wound should not be submerged underwater (i.e. in a bathtub or pool) until 4 weeks after surgery CASIE stockings If you were given white stockings, these are to be worn at all times except to shower (on both legs) for the first 2 weeks after surgery. Driving You may not drive while taking narcotic pain medication or while in a cast, splint, sling or brace. You, the patient, need to make the final determination about when you are safe to drive, however, the earliest you may consider driving after surgery is below: Hand/Wrist/Elbow Surgery: 3 days Shoulder Surgery: 2 weeks Hip,/Knee/Ankle Surgery: 4 weeks Fracture repair: 6 weeks Return to Work Your return to work depends on what surgery was done and what type of work you do. Please bring any paperwork your employer needs completed to your first post-operative visit. Also, bring a description of your job duties, as this helps us to understand what risks you may face at work. Travel Avoid long distance travel (greater than 1 hour) in airplanes and cars for the first 6 weeks after surgery. If you must travel, you need to have a Doppler ultrasound done before you travel to rule out a blood clot in your legs. Follow-up You should have a follow-up appointment already scheduled 1-2 days after surgery. If not, please contact our office to make this appointment before you leave the hospital. When to call the office It is normal to have swelling and bruising in the limb that was operated on. This will improve with time. It is also normal to have fevers for the first 2 days after surgery. Reasons you should call your doctor include: Uncontrolled pain; Nausea, vomiting, or constipation that does not improve with medication; Fevers over 101.5, chills, sweats; Drainage or bleeding from the wound; Foul odor; Spreading areas of redness; Any other concerns Pending Studies at Discharge: No Stand-Alone Forms: My [facility] Medications and DC Order Prescriptions: New hydrocodone-acetaminophen 5-325 mg Tablet 1 - 2 tab PO Q4H PRN (Reason: Post op pain control (ongoing Tx)) Qty: 28 0RF Continued ropinirole 1 mg Tablet 1 - 2 mg PO UD Rx Instructions: 1 tab 1600 and 2 tabs HS. tramadol 50 mg Tablet 50 mg PO Q4H PRN (Reason: Pain) levothyroxine 75 mcg Tablet 75 mcg PO QAM metoprolol succinate 25 mg Tablet Extended Release 24 Hr 12.5 mg PO HS ergocalciferol (vitamin D2) [Vitamin D2] 1,250 mcg (50,000 unit) Capsule 1,250 mcg PO Q7D [id number]-Al-dxtz-minerals 18-0.4 mg Tablet 1 tab PO QAM gabapentin 300 mg Tablet Extended Release 24 Hr 300 mg PO HS Changed celecoxib [Celebrex] 100 mg Capsule 100 mg PO BID 30 Days Qty: 60 0RF Discharge Orders: Discharge Order (Routine); Ordered 07/13/22 Ordered By: Rakan Mccall Admission Data Admit Date/Time: 07/12/22 10:08 Attending Provider: Chaitanya Walls Admit Provider: Chaitanya Walls Primary Care Provider: Dali Arevalo Other Providers: [employer],[facility]
[2022-07-13] MEDS ORDERED: rOPINIRole HCL 1 MG TABLET PO SCH (16:00)
[2022-07-13] MEDS ORDERED: CeleBREX 200 MG CAP PO SCH (21:00)
[2022-07-17] MEDS ORDERED: ERGOCALCIFEROL 50,000 UNITS 1250 MCG CAP PO SCH (09:00)
== END 2022-07-13 13:06 | disposition home health service (06) ==
LOC: 3E 05:54 → ASU 05:54